=== PATIENT | female | born 1990 | race Caucasian/White ===

== ENCOUNTER → 2017-12-28 | Outpatient (CLI) | payer OTHER | LOC: FIMAGING 09:53 | PROVIDERS: ATTEND Advanced Practice Midwife | DX: Z34.02 Encounter for supervision of normal first pregnancy, second trimester (principal); Z3A.20 20 weeks gestation of pregnancy ==

== ENCOUNTER 2018-05-08 10:51 | Observation (INO) | payer OTHER ==
[2018-05-08] MEDS ORDERED: fentaNYL 100 MCG/2 ML INJ IVP PRN (11:03)
[2018-05-08] MEDS ORDERED: METHYLERGONOVINE MAL 0.2 MG/ML INJ IM ONE (11:07)
[2018-05-08] MEDS ORDERED: METHYLERGONOVINE MAL 0.2 MG/ML INJ ONE (11:09)
[2018-05-08] MEDS ORDERED: MISOPROSTOL 200 MCG TAB ONE (11:09)
[2018-05-08] MEDS ORDERED: fentaNYL 100 MCG/2 ML INJ IVP ONE (11:36)
[2018-05-08] MEDS ORDERED: SIMETHICONE 80 MG TAB CHEW PO PRN (11:39)
[2018-05-08] MEDS ORDERED: DOCUSATE SODIUM 100 MG CAP PO PRN (11:39)
[2018-05-08] MEDS ORDERED: ACETAMINOPHEN 325 MG TAB PO PRN ×2 (11:39→11:43)
[2018-05-08] MEDS ORDERED: ceFAZolin 2 GM/DEXTROSE 100 ML IV ONE ×2 (11:40→11:54)
[2018-05-08] MEDS ORDERED: IBUPROFEN 600 MG TAB PO PRN (11:43)
--- NOTE | 2018-05-08 11:46 | POSTOPPROG ---
Post Op Note Date of Operation: 05/08/18 Surgeon: Clarita Trujillo Agricultural Commodities Inspector: Alexia Long CNM Anesthesia: Local (Specify), Other (Specify) (IV Fentanyl) Pre-op Diagnosis: s/p with retained placenta Post-op Diagnosis: same Procedure: U/s guided manual removal of placenta and bedside curettage, labial repair Findings: retained placenta Inf/Abcess present in the surg proc area at time of surgery?: No Depth: Organ Space EBL: 100-500 (300 for hospital procedure, reported 400 prior to arrival at hospital from Center) Total fluids administered: 1000 Complications: none Specimen(s): none
[2018-05-08] MEDS ORDERED: OXYTOCIN/RINGERS LACTATE 1,000 ML IV SCH (12:00)
[2018-05-08] MEDS: IBUPROFEN 600 MG TAB PO SCH ×2 (12:04→19:14)
--- NOTE | 2018-05-08 12:16 | GHP ---
[f rep st] PREOP HISTORY AND PHYSICAL DATE OF ADMISSION: 05/08/2018 ADMITTING DIAGNOSIS: Status post spontaneous vaginal delivery of a 39 week fetus with a retained placenta. HISTORY OF PRESENT ILLNESS: Raegan is a 27-year-old 1, para 0, with a last menstrual period of 08/04/2017, and EDC of 05/11/2018. She is a patient of the [facility] [place]. She went into spontaneous labor on the night of the and had a spontaneous vaginal delivery approximately 9 a.m. this morning. She had a retained placenta. It did not deliver spontaneously and known marginal insertion of the cord, so an avulsed cord was noted with minimal traction a couple hours earlier at the Center. Estimated blood loss approximately 400 cc of estimated blood loss and they transferred her for management [facility]. PATIENT MEDICAL HISTORY: Patient's only significant medical history is asthma. She uses an albuterol inhaler approximately twice a week. Her surgical history is only wisdom teeth extraction. This is her first . She has no other significant gynecological history or any other issues. ALLERGIES: She is allergic to penicillin, it gives her a rash. FAMILY HISTORY/SOCIAL HISTORY: Noncontributory. PHYSICAL EXAMINATION: VITAL SIGNS: She is afebrile. Vital signs are stable. GENERAL: She is well-developed, well-nourished, no acute distress. ABDOMEN: Uterus is deviated to the right. PELVIC: Retained placenta is visualized at the level of the perineum, which appears intact. ASSESSMENT AND PLAN: A 27-year-old 1, para 0, status post spontaneous vaginal delivery with retained placenta. Patient will be admitted for manual extraction of the placenta and repair of any perineal lacerations. We will do a CBC and RhoGAM studies because the patient is Rh negative and observe for bleeding. /[id number]/MODL MTDD
[2018-05-08] MEDS: MISOPROSTOL 200 MCG TAB PR SCH (12:42)
--- NOTE | 2018-05-08 12:46 | GOP ---
[f rep st] OPERATIVE REPORT DATE OF OPERATION: 05/08/2018 SURGEON: Clarita Trujillo MD ACCOUNT CONTACT ASSOCIATE: Alexia Long, certified nurse shotgun shell assembly machine adjuster. ANESTHESIA: IV sentinel and local anesthesia. PREOPERATIVE DIAGNOSIS: Retained placenta. POSTOPERATIVE DIAGNOSIS: Retained placenta. PROCEDURE PERFORMED: Ultrasound-guided manual extraction of the placenta and repair of labial lacerations. FINDINGS: ESTIMATED BLOOD LOSS: 300 for the total manual extraction , 400 at the Center so a total of 700. DESCRIPTION OF PROCEDURE: Patient was assessed at the bedside. She had approximately 2 hours of retained placenta and avulsed cord. We gave her IV fentanyl, and with ultrasound guidance, I did a vaginal exam and was able to manually remove approximately 2/3 of the placenta, which was retained in the vagina, and up to 2/3 of the uterus. Ultrasound revealed a large piece of placenta retained at the fundus. Second procedure, I was able to extract the placenta from its attachment to the fundus. The patient tolerated this well. There was minimal bleeding. With ultrasound guidance, we performed sharp curettage and removed several more smaller pieces of placenta until a thin endometrial stripe was visualized from the fundus to the cervix, and there was no further significant bleeding. Patient's bladder was drained with a red rubber catheter. There were bilateral labial lacerations. No perineal lacerations. This was repaired after injection of local lidocaine with 3-0 Vicryl in a subcuticular fashion. Patient tolerated the procedure well. She did not need general anesthesia. IV FLUIDS: 1000 of LR with Pitocin. URINE OUTPUT: Not measured. PATHOLOGY: No pathology. /[id number]/MODL MTDD
[2018-05-08 13:29] LABS: PLATELET COUNT 199 10^3/uL (150-400)
--- NOTE | 2018-05-08 18:45 | SOAPPROG ---
SOAP Progress Note Assessment/Plan: Pt unable to ambulate without dizziness or feeling faint. Bleeding is WNL, VSS. uterus firm Advised that safest decision would be to monitor her overnight and d/c home in the morning. Pt not happy about decision to stay but understands importance of safety- and agrees. Pt will be moved to MB unit in approx 1 hour. will cont to monitor. Will have support PRN. routine PP Care, will plan to see in the morning to d/c home (if able to ambulate without difficulty.) 05/08/18 18:36 Objective: Vital Signs Temp Pulse Resp BP Pulse Ox 37.2 C 91 16 114/65 95 05/08/18 12:05 05/08/18 12:05 05/08/18 12:05 05/08/18 12:05 05/08/18 12:05 Laboratory Results 05/08/18 13:05 - Time Spent With Patient Time Spent With Patient: 45min - Pending Discharge Pending Discharge Within 24 Hours: Yes Pending Discharge Date: 05/09/18 Pending Discharge Time: 11:00 ICD10 Worksheet Patient Problems: Problems Problem Status Onset Encounter for care after planned out of hospital delivery Acute Retained placenta or membranes without hemorrhage Acute - ICD10 Problem Qualifiers (1) Retained placenta or membranes without hemorrhage (2) Encounter for care after planned out of hospital delivery
[2018-05-09] MEDS: IBUPROFEN 600 MG TAB PO SCH ×3 (01:15→17:10)
[2018-05-09] MEDS: MISOPROSTOL 200 MCG TAB PR SCH (01:39)
[2018-05-09 08:20] VITALS: BP 118/77
--- NOTE | 2018-05-09 08:57 | OBGCSDC ---
General Delivery Information - General Info : 1 Para: 1 Abortions: 0 Type: Vaginal L&D Analgesia/Anesthesia Type: None Admission Date: 05/08/18 Labs: Patient ABO/Rh A NEGATIVE 05/08/18 13:05 Hct 30.0 % (38.0-47.0) L 05/08/18 13:05 - Hospital Course : 05/09/18 08:54 Pt admitted yesterday for retained placenta. She had bedside curettage with Dr. Trujillo yesterday. Stayed overnight due to difficulty ambulating to bathroom. Feeling "100% better" today. Voiding well, tolerating PO. Pain well controlled. Plan support today, d/c home this afternoon. - Delivery Providers Surgeon: Clarita Trujillo Discharge Information - Discharge Information Condition: Good Instruction/Follow Up: One Week (follow up with center CNMs for PP)
== END 2018-05-09 12:00 | disposition home or self-care (01) ==
LOC: FLD 10:51 → INTOOBSV 10:51 → FOB 20:23
PROVIDERS: ADMIT Obstetrics & Gynecology; ATTEND Obstetrics & Gynecology
PROC: 0HQ9XZZ Repair Perineum Skin, External Approach (ICD-10-PCS; principal; 2018-05-08)
PROC: 10D17ZZ Extraction of Products of Conception, Retained, Via Natural or Artificial Opening (ICD-10-PCS; 2018-05-08)
DX: O72.0 Third-stage hemorrhage (principal); O70.0 First degree perineal laceration during delivery; Z88.0 Allergy status to penicillin; Z3A.39 39 weeks gestation of pregnancy
CPT/HCPCS: 59300; 59414; 99241; G0378; G0463; J0690; J2210; J3010